=== PATIENT | male | born 1980 | race Caucasian/White ===

== ENCOUNTER 2019-07-11 18:23 | Emergency (ER) | payer MEDICAID ==
[~2019-07-11] VITALS: Ht 180.3 cm; Wt 82.6 kg
[2019-07-11 18:37] VITALS: Ht 180.3 cm; Wt 82.6 kg
[2019-07-11 21:08] VITALS: BP 122/74
== END 2019-07-11 21:08 | disposition home or self-care (01) ==
LOC: ED 18:23
DX: R21 Rash and other nonspecific skin eruption (principal); L29.9 Pruritus, unspecified
CPT/HCPCS: J2930; J7512; Q0163